=== PATIENT | female | born 2000 | race Caucasian/White ===

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

== ENCOUNTER 2025-08-06 06:18 | Inpatient (IN) ==
[2025-08-06 06:42] VITALS: BMI 42.0
[2025-08-06 06:43] LABS: BLOOD/HEMOGLOBIN,URINE 1+ (NEGATIVE); LEUKOCYTE ESTERASE ,URINE 3+ (NEGATIVE); NITRITES,URINE NEGATIVE (NEGATIVE)
[2025-08-06] MEDS ORDERED: ZOFRAN INJ 4 MG VIAL IVP PRN (06:45)
[2025-08-06] MEDS ORDERED: NUBAIN INJ 10 MG AMP IVP PRN (06:45)
[2025-08-06] MEDS ORDERED: REGLAN INJ 10 MG VIAL IVP PRN (06:45)
[2025-08-06 06:46] LABS: APPEARANCE,URINE SLIGHTLY HAZY (CLEAR)
[2025-08-06 06:49] LABS: SQUAMOUS EPITHELIAL CELL,UR MODERATE /HPF (NEGATIVE)
[2025-08-06] MEDS ORDERED: PITOCIN ONE (06:50)
[2025-08-06] MEDS ORDERED: D5 1/2 NS 1,000 ML 1,000 ML IV ONE (06:51)
[2025-08-06 06:55] LABS: AMNISURE ROM TEST NO MEMBRANES RUPTURE (NO RUPTURE)
[2025-08-06] MEDS: D5 1/2 NS 1,000 ML 1,000 ML IV SCH (07:01)
[2025-08-06] MEDS: AMPICILLIN VIAL 2 GRAM 2 G in NS 100 ML IV + SPIKE MINIBAG* 100 ML IV SCH (07:01)
[2025-08-06 07:17] LABS: MEAN PLATELET VOLUME 8.8 fL (7.4-11.0); RED CELL DISTRIBUTION WIDTH 16.0 % (11.6-16.5)
[2025-08-06 07:31] LABS: CREATININE 0.54 mg/dL (0.55-1.02); eGFR NON BLACK RACES > 60 (>60)
[2025-08-06] MEDS: OXYTOCIN 20 UNIT/1,000 ML-NS 20 UNIT/1,000 ML PLAST..BAG IV PRN (07:48)
[2025-08-06] MEDS: LR 1,000 ML IV 1,000 ML IV ONE (07:52)
--- NOTE | 2025-08-06 08:00 | DR.OB ---
OB QUICK NOTE Assessment/Plan (1) Active labor at term: Assessment/Plan: L&D 08/06/25 at 7:25am S-No complaint except CTX. O-Afebrile,VSS UHZ=457 with good LTV, +accel, no decel. CTX=q 2-5 min., moderate by palpation CVX=5cm/50%/-1/VTX AROM with clear fluid. IUPC and FSE placed. A-IUP at 39 0/7 weeks in active labor +GBS P-Begin pitocin augmentation as needed F/U labs IV ABX in labor for +GBS Anticipate
[2025-08-06] MEDS: FENTANYL VIAL INJ 100 mcg ONE (08:50)
[2025-08-06] MEDS: NAROPIN EPIDURAL 0.2% 100 ML ONE (08:50)
[2025-08-06] MEDS: BETADINE SOLN ONE (10:37)
[2025-08-06] MEDS: PITOCIN IVP ONE (10:48)
[2025-08-06] MEDS ORDERED: AMPICILLIN VIAL 1 GRAM 1 G in NS 50 ML IV + SPIKE MINIBAG* 50 ML IV SCH (11:00)
[2025-08-06] MEDS: OXYTOCIN 20 UNIT/1,000 ML-NS 20 UNIT/1,000 ML PLAST..BAG IV SCH (11:35)
[2025-08-06] MEDS ORDERED: MILK OF MAGNESIA PO PRN (11:53)
[2025-08-06] MEDS ORDERED: DERMOPLAST PAIN RELIEF SPRAY TOP PRN (11:53)
[2025-08-06] MEDS ORDERED: AMBIEN PO PRN (11:53)
[2025-08-06] MEDS ORDERED: MOTRIN TAB 800 MG PO PRN (11:53)
[2025-08-06] MEDS ORDERED: PROVENTIL NEB TX 0.083% 2.5MG/ 3ML NEB PRN (11:59)
--- NOTE | 2025-08-06 12:08 | DR.OB ---
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 Mother and were stable. Head was delivered over intact perineum. Nose and mouth were bulb suctioned upon delivery of the head. No nuchal cord was noted. The body was delivered over intact perineum. The cord was clamped x 2 and cut with the infant being handed off to attendents. A cord segment was sent for gases. The placenta was delivered spontaneously/intact/three-vessel cord noted. No cervical/vaginal/perineal tears were noted. A viable male was delivered by spontaneous vaginal delivery from a vertex/OA position, weighing 8 pounds 7 ounces with Apgars of 8/9, that was stable and sent to the nursery. The mother did well and was sent to the recovery room in stable condition. Estimated blood loss equals 300 cc.
[2025-08-06] MEDS: ADACEL or BOOSTRIX TDaP VACCINE IM ONE (14:20)
[2025-08-06] MEDS: MOTRIN TAB 800 MG PO PRN (21:38)
[2025-08-06] MEDS: AMPICILLIN VIAL 2 GRAM ONE (21:49)
[2025-08-06] MEDS: NS 100 ML IV 100 ML ONE (21:50)
[2025-08-07 04:56] VITALS: O2SAT 98
[2025-08-07 07:57] VITALS: BP 138/64; PULSE 102; RESP 20; TEMP 97.4
[2025-08-07] MEDS: PRENATAL PLUS PO SCH (08:19)
[2025-08-07] MEDS: PROTONIX TAB 40 MG PO SCH (08:19)
== END 2025-08-07 10:50 | disposition home or self-care (01) | DRG 806 ==
LOC: ER 06:18 → LD 06:45 → MED/SURG 12:51
PROVIDERS: ADMIT Specialist; ATTEND Specialist
DX: B95.1 Streptococcus, group B, as the cause of diseases classified elsewhere; K21.9 Gastro-esophageal reflux disease without esophagitis; O99.613 Diseases of the digestive system complicating pregnancy, third trimester; Z37.0 Single live birth; O99.892 Other specified diseases and conditions complicating childbirth; O98.82 Other maternal infectious and parasitic diseases complicating childbirth; Z3A.39 39 weeks gestation of pregnancy